=== PATIENT | male | born 1995 | race Caucasian/White ===

== ENCOUNTER 2018-07-03 09:31 | Emergency (ER) | payer OTHER ==
[2018-07-03 10:40] VITALS: BP 124/79
--- NOTE | 2018-07-03 10:48 | UC ---
Throat Pain/Nasal Vega HPI - HPI Summary HPI Summary: 23 yo with PMH of asthma and seasonal allergies who c/o runny nose, chest congestion, coughing since tuesday06/30/18. - History of Current Complaint Chief Complaint: UCRespiratory Stated Complaint: VOICE LOSS, COUGH Time Seen by Provider: 07/03/18 10:40 Hx Obtained From: Patient Onset/Duration: Sudden Onset, Lasting Days Severity: Mild Pain Intensity: 0 Cough: None Associated Signs & Symptoms: Positive: Nasal Discharge - Epiglottits Risk Factors Epiglottis Risk Factors: Negative - Allergies/Home Medications Allergies/Adverse Reactions: Allergies Allergy/AdvReac Type Severity Reaction Status Date / Time No Known Allergies Allergy Verified 03/04/14 17:40 PMH/Surg Hx/FS Hx/Imm Hx Respiratory History: Asthma - Surgical History Surgical History: Yes Surgery Procedure, Year, and Place: DeviatedSeptum/Sinoplasty/Adnoidectomy, Tonsilectomy 2007, [place]. hernia repair - Family History Known Family History: Positive: None - Social History Alcohol Use: None Substance Use Type: None Smoking Status (MU): Heavy Every Day Tobacco Smoker Type: Smokeless Tobacco Amount Used/How Often: 1/2 can per day Length of Time of Smoking/Using Tobacco: since age 18 Have You Smoked in the Last Year: Yes Review of Systems All Other Systems Reviewed And Are Negative: Yes ENT: Positive: Nasal Discharge, Sinus Congestion Physical Exam Triage Information Reviewed: Yes Appearance: Well-Appearing, No Pain Distress, Well-Nourished Vital Signs: Initial Vital Signs Temp 98.7 F 07/03/18 10:32 Pulse 65 07/03/18 10:32 Resp 16 07/03/18 10:32 BP 124/79 07/03/18 10:32 Pulse Ox 100 07/03/18 10:32 Vital Signs Reviewed: Yes Eye Exam: Normal Eyes: Positive: Conjunctiva Clear ENT: Positive: Normal ENT inspection, Hearing grossly normal, Pharynx normal, TMs normal, Uvula midline Neck: Positive: Supple, Nontender, No Lymphadenopathy Respiratory: Positive: Chest non-tender, Lungs clear, Normal breath sounds, No respiratory distress Cardiovascular: Positive: RRR, No Murmur, Pulses Normal, Brisk Capillary Refill Abdomen Description: Positive: Nontender, No Organomegaly, Soft Bowel Sounds: Positive: Present Musculoskeletal: Positive: Strength Intact, ROM Intact Neurological: Positive: Alert Skin Exam: Normal Throat Pain/Nasal Course/Dx - Course Course Of Treatment: patient with URI for 4 days with voice changes consistent with laryngitis. Supportive care, continue fluids, voice rest. Requests refill of albuterol due to some cough in the mornings - Differential Dx/Diagnosis Provider Diagnoses: Laryngitis. mild intermittent bronchial asthma Discharge - Sign-Out/Discharge Documenting (check all that apply): Patient Departure All imaging exams completed and their final reports reviewed: No Studies - Discharge Plan Condition: Stable Disposition: HOME Patient Education Materials: Laryngitis (ED), Ibuprofen (By mouth) Forms: *Work Release Referrals: No Primary Care Phys,NOPCP [Primary Care Provider] - - Billing Disposition and Condition Condition: STABLE Disposition: Home
== END 2018-07-03 10:55 | disposition home or self-care (01) ==
LOC: UCCORT 09:31
DX: J04.0 Acute laryngitis (principal); J45.20 Mild intermittent asthma, uncomplicated; F17.290 Nicotine dependence, other tobacco product, uncomplicated
CPT/HCPCS: 99202; G0463